=== PATIENT | female | born 1960 | race Caucasian/White ===

== ENCOUNTER 2020-12-01 15:31 | Emergency (ER) | payer OTHER ==
[~2020-12-01] VITALS: Ht 165.1 cm; Wt 66.2 kg
[2020-12-01] MEDS ORDERED: NORVASC5 M1 PO (15:42)
[2020-12-01] MEDS ORDERED: PROZAC 10 MG CA10 MG PO (15:42)
[2020-12-01] MEDS ORDERED: ZIAC 5-6.25 MG1 EACH PO (15:43)
[2020-12-01] MEDS ORDERED: HYDROCODON-ACE1 EAC7 PO (16:21)
[2020-12-01 16:26] VITALS: BP 158/78
== END 2020-12-01 16:27 | disposition home or self-care (01) ==
LOC: M.ERS 15:31
DX: S62.112A Displaced fracture of triquetrum [cuneiform] bone, left wrist, initial encounter for closed fracture (principal); I10 Essential (primary) hypertension; Z90.710 Acquired absence of both cervix and uterus; Z90.49 Acquired absence of other specified parts of digestive tract; W01.0XXA Fall on same level from slipping, tripping and stumbling without subsequent striking against object, initial encounter; Y93.89 Activity, other specified; Y92.89 Other specified places as the place of occurrence of the external cause; Y99.8 Other external cause status